=== PATIENT | male | born 1960 | race Caucasian/White ===

== ENCOUNTER 2017-04-17 12:33 | Inpatient (IN) | payer BC, OTHER ==
[~2017-04-17] VITALS: Ht 182.9 cm; Wt 68.0 kg
[2017-04-17 14:00] VITALS: BP 122/77
--- NOTE | 2017-04-17 14:00 | NUR ---
INTAKE ASSESSMENT Received patient in intake. He is AOX4, stable, and ambulatory. Vital signs WNL. Patient reports NKA. Patient has seizure history last seizure 2 days ago. Patient brought home medications with him. Explained unit protocols and patient verbalized understanding. Will admit patient upon admission to third floor.
--- NOTE | 2017-04-17 14:10 | NUR ---
ADMISSION NOTE Allergy- NKA/NKFA Status-Full code Height -6'0 Weight-150 lb PCP-ALEJO HERNANDEZ Vital Signs- B/P-122/77,HR-118, R-18, TEMP-98.9, SPO2-97%, Pain 0/10 CIWA-3 Patient is a 56 year old male admitted to [facility] to detox center for ETOH dependence under the care of Dr. Mendoza. Patient unable to provide Urine at this time, thorough body and belonging check done by CREDIT CONTROLLER. Patient appears anxious and agitated. Patient is cooperative during nursing assessment. Upon admission Patient is noted to be flat, intoxicated, but cooperative with admission. Patient denies chest pain or SOB. Lung sounds clear with no cough noted. Bowel sounds present in all 4 quadrants. BUE and BLE noted WNL with no edema present. Skin check done with no significant findings. Pt reported PMH of Anxiety, Insomnia, history of seizure 2 days ago, Bipolar, GERD, HTN, Fracture Rib 1 week ago. Pt refused PNA vaccine. Patient brought in home medications. Patient denies SI/HI ideations. Pt AOx4. Patient reported third time in treatment. Patient reports of 5 years of sobriety from 2000 to 2005. Pt reported s/s of withdrawal as anxiety, agitation, Sweats, seizure. Pt reported Substance abuse history as: ETOH(VODKA)- Patient reported first drinking at the age of 10 and has been drinking on and off. for the past 6 months pt reported drinking 750ml Po daily, pt last drank on 04/17/17 at 0900 750ml Po. Educated patient regarding unit policies and protocols, patient verbalized understanding. Patient oriented to unit by CREDIT CONTROLLER. Fall and seizure precautions in place. Safety measures in place, Call light within reach. Will cont to monitor.
[2017-04-17] MEDS ORDERED: PHEN32.43 PO (14:19)
[2017-04-17] MEDS ORDERED: AMIT100T2 PO (14:19)
[2017-04-17] MEDS ORDERED: ONDA4TAB5 PO (14:19)
[2017-04-17] MEDS ORDERED: QUET300T19 PO (14:19)
[2017-04-17] MEDS ORDERED: LORA2TAB95 PO (14:19)
[2017-04-17] MEDS ORDERED: CLON0.1T PO (14:19)
[2017-04-17] MEDS ORDERED: TRAZ300T2 PO (14:19)
[2017-04-17] MEDS ORDERED: CHLO25TA2 PO (14:19)
[2017-04-17] MEDS ORDERED: PANT40TA4 PO (14:19)
[2017-04-17] MEDS ORDERED: BUSP15TA3 PO (14:19)
[2017-04-17] MEDS ORDERED: LEVE500T9 PO (14:19)
[2017-04-17] MEDS ORDERED: LEVETIRACETAM 500 MG TABLET PO SCH (15:15)
[2017-04-17] MEDS ORDERED: LORAZEPAM 2 MG/1 ML VIAL IM PRN (15:30)
[2017-04-17] MEDS ORDERED: ONDANSETRON 4 MG/2 ML VIAL IM PRN (15:30)
[2017-04-17] MEDS ORDERED: THIAMINE HCL 200 MG/2 ML VIAL IM ONE (15:30)
[2017-04-17] MEDS ORDERED: MAG HYDROX/AL HYDROX/SIMETH 30 ML LIQUID UDC PO PRN (15:30)
[2017-04-17] MEDS ORDERED: LOPERAMIDE HCL 2 MG CAPSULE PO PRN ×2 (15:30)
[2017-04-17] MEDS ORDERED: MIRALAX 17 GM POWD.PACK PO PRN (15:30)
[2017-04-17] MEDS ORDERED: DIAZEPAM 5 MG TABLET PO PRN (15:30)
[2017-04-17] MEDS ORDERED: ONDANSETRON ODT 4 MG TAB.RAPDIS SL PRN (15:30)
[2017-04-17] MEDS ORDERED: ACETAMINOPHEN 325 MG TABLET PO PRN (15:30)
[2017-04-17] MEDS ORDERED: DICYCLOMINE HCL 20 MG TABLET PO PRN (15:30)
[2017-04-17] MEDS ORDERED: IBUPROFEN 400 MG TABLET PO PRN (15:30)
[2017-04-17] MEDS ORDERED: CLONIDINE HCL 0.1 MG TABLET PO PRN (15:30)
[2017-04-17] MEDS ORDERED: HYDROXYZINE PAMOATE 25 MG CAPSULE PO PRN (15:30)
[2017-04-17] MEDS ORDERED: MAGNESIUM HYDROXIDE 30 ML LIQUID UDC PO PRN (15:30)
[2017-04-17] MEDS ORDERED: DIAZEPAM 10 MG TABLET PO PRN ×2 (15:30)
[2017-04-17 16:00] VITALS: BP 117/72
[2017-04-17 16:09] LABS: ALANINE AMINOTRANSFERASE 23 U/L (16-63); ALKALINE PHOSPHATASE 73 U/L (50-136); AMYLASE 39 U/L (25-115); ASPARTATE AMINOTRANSFERASE 26 U/L (15-37); BASOPHILS % (AUTO) 0.3 % (0.0-2.0); BILIRUBIN,TOTAL 0.6 mg/dL (0.2-1.0); CARBON DIOXIDE 27 mmol/L (21-32); CHLORIDE 102 mmol/L (98-107); CREATININE 1.1 mg/dL (0.6-1.3); EOSINOPHILS % (AUTO) 0.2 % (0.0-7.0); GLUCOSE 103 mg/dL (74-106); HEMATOCRIT 40.7 % (40-50); HEMOGLOBIN 13.8 G/DL (14.0-18.0); LIPASE 89 U/L (73-393); MAGNESIUM 1.5 mg/dL (1.8-2.4); MEAN CORPUSCULAR HEMOGLOBIN 30.6 UUG (27.0-31.0); MEAN CORPUSCULAR HGB CONC 34 g/dL (32.0-37.0); MEAN CORPUSCULAR VOLUME 90.2 FL (82.0-92.0); MONOCYTES # (AUTO) 0.5 K/UL (0.1-1.30); MONOCYTES % (AUTO) 4.6 % (0.0-11.0); NEUTROPHILS # (AUTO) 8.3 K/UL (1.8-8.9); NEUTROPHILS % (AUTO) 84.9 % (38.5-71.5); PLATELET COUNT (AUTO) 384 K/UL (150-450); POTASSIUM 4.6 mmol/L (3.5-5.1); RED BLOOD CELL COUNT(AUTO) 4.51 MIL/UL (4.7-6.1); TOTAL PROTEIN, SERUM 7.4 g/dL (6.4-8.2); UREA NITROGEN, BLOOD 28 mg/dL (7-18); WHITE BLOOD COUNT (AUTO) 9.8 K/UL (4.0-11.2)
[2017-04-17 16:26] LABS: ETHANOL < 3 MG/DL (0-0)
[2017-04-17] MEDS: busPIRone 10 MG TABLET PO SCH (16:56)
[2017-04-17] MEDS ORDERED: PANTOPRAZOLE SODIUM 40 MG TABLET.DR PO SCH (17:00)
--- NOTE | 2017-04-17 17:41 | NUR ---
PRN VALIUM/ZOFRAN Patient reported emesis x2/anxiety,agitation, nausea, sweats, CIWA score noted 10. Patient medicated with PRN Valium 10mg Po and Zofran 4mg IM as ordered. Will cont to monitor and reassess.
[2017-04-17] MEDS ORDERED: MAGNESIUM SULFATE 2 GM in IV DEXTROSE 5% 100 ML IV ONE (18:00)
--- NOTE | 2017-04-17 18:14 | NUR ---
ZOFRAN REASSESSMENT Per patient Zofran was effective no nausea no emesis at this time.
[2017-04-17] MEDS ORDERED: DIAZEPAM 10 MG/2 ML DISP.SYRIN IV PRN ×3 (18:15)
--- NOTE | 2017-04-17 18:25 | NUR ---
EMESIS x1 MD notified and aware of patient throwing up coffee ground emesis X1 orders received to place pt on NPO labs Q6H and IV fluids all orders processed and carried out. Will cont to monitor patient is in stable condition.
--- NOTE | 2017-04-17 18:30 | NUR ---
IV INSERTION IV inserted to left hand, 22 gauge, procedure explained prior to insertion with good verbal understanding, procedure well tolerated. IV saline lock patent, flushed with 10 cc normal saline, no s/sx of infiltration. Will cont to monitor.
[2017-04-17] MEDS: MAGNESIUM SULFATE/D5W 100 ML IV SCH (18:34)
[2017-04-17] MEDS: POTASSIUM CHLORIDE 10 MEQ in IV D5 1/2 NS 1000 ML 1,000 ML IV SCH (18:34)
--- NOTE | 2017-04-17 18:41 | NUR ---
VALIUM REASSESSMENT Per patient PRN Valium was effective in reducing patient's withdrawal symptoms CIWA score noted 5.
[2017-04-17] MEDS ORDERED: LORAZEPAM 2 MG/1 ML VIAL IV PRN (18:45)
[2017-04-17] MEDS ORDERED: LORAZEPAM 1 MG TABLET PO PRN ×2 (18:45)
--- NOTE | 2017-04-17 18:52 | NUR ---
IV D51/2NS w/10meq KCL @ 125cc/hr started via pump. Also Magnesium IVPB started @ 100cc/hr.
[2017-04-17 19:01] LABS: *AMPHETAMINE, URINE NEGATIVE (NEGATIVE); *BARBITURATE, URINE POSITIVE (NEGATIVE); *CANNABINOID, URINE POSITIVE (NEGATIVE); *COCCAINE, URINE NEGATIVE (NEGATIVE); *OPIATE, URINE POSITIVE (NEGATIVE); *PHENCYCLIDINE SCREEN,URINE NEGATIVE (NEGATIVE)
--- NOTE | 2017-04-17 19:30 | NUR ---
Start of Shift Notes 56 year old male admitted on 04/17/2017 for ETOH dependence. Patient placed on 5 days Ativan taper starting tomorrow 04/18/2017. Px has NKA, on regular diet, and on Full Code. Px has hx of seizure in which the last was 04/15/2017. During the rounds at 1930, px was sleeping. Px has an IVF of KCL 10 Meqs in D5 half saline 1L IV fluids with piggy back Magnesium Sulfate 1G in D5W 100 ml, 100 ml/hr running well on left hand 22G. VS: BP= 120/72, VT= 111, RR= 18, O2sat= 97%, T= 98.8. Patient urine results came positive for barbiturates, cannabinoids, Benzodiazepines. Patient reported taking Phenobarbital since september 2016, and Ativan for 20 years on and off, notified. Safety measures in place, Bed locked on lowest position, side rails up 2x and call light within reach. We'll continue to monitor.
[2017-04-17 19:32] LABS: BASOPHILS # (AUTO) 0.1 K/uL (0.0-8.0); BASOPHILS % (AUTO) 1.9 % (0.0-2.0); EOSINOPHILS % (AUTO) 0.2 % (0.0-7.0); HEMATOCRIT 35.3 % (40-50); LYMPHOCYTES # (AUTO) 1.3 K/UL (0.8-4.8); LYMPHOCYTES % (AUTO) 16.8 % (20.5-51.5); MEAN CORPUSCULAR HEMOGLOBIN 30.6 UUG (27.0-31.0); MEAN CORPUSCULAR HGB CONC 34 g/dL (32.0-37.0); MEAN CORPUSCULAR VOLUME 90.2 FL (82.0-92.0); MONOCYTES # (AUTO) 0.7 K/UL (0.1-1.30); MONOCYTES % (AUTO) 9.5 % (0.0-11.0); NEUTROPHILS # (AUTO) 5.4 K/UL (1.8-8.9); NEUTROPHILS % (AUTO) 71.6 % (38.5-71.5); PLATELET COUNT (AUTO) 301 K/UL (150-450); RED BLOOD CELL COUNT(AUTO) 3.92 MIL/UL (4.7-6.1); WHITE BLOOD COUNT (AUTO) 7.5 K/UL (4.0-11.2)
--- NOTE | 2017-04-17 19:33 | NUR ---
END OF SHIFT NOTE 56 year old male admitted for ETOH dependence. Patient placed on 5 days Ativan taper starting tomorrow. Patient presented with anxiety agitation, sweats, nausea, Patient was given PRN Valium/Zofran noted to be effective. IV fluids running well on left hand 22G. Patient urine results came positive for barbiturates, cannabinoids, Benzodiazepines. patient reported taking Phenobarbital since september 2016, and Ativan for 20 years on and off, MD notified. Safety measures in place, call light within reach. Pt endorsed to night nurse in stable condition.
--- NOTE | 2017-04-17 19:40 | NUR ---
MD Communication: Relayed to MD change in Hgb. Hgb went down from 13.8 at 1538 to 12.0 at 1920. MD ordered for transfer to ER for possible GI Bleed. Will transfer to ER.
[2017-04-17 20:00] VITALS: BP 120/72
[2017-04-17] MEDS ORDERED: IV NORMAL SALINE 500 ML IV ONE (20:00)
--- NOTE | 2017-04-17 20:10 | NUR ---
Manager Fire, ER, and MD Communication: ER called and stated no beds available for now. Manager Fire to call unit when ready to transfer. MD made aware with new order to give 500ml NS bolus one time now.
--- NOTE | 2017-04-17 20:13 | NUR ---
IVF NS 500 ml bolus IVF NS 500 ml given bolus running well through peripheral IV access on left hand. We'll continue to monitor.
--- NOTE | 2017-04-17 20:30 | NUR ---
Peripheral IV access Started an IV access on right forearm 18 G aseptic technique, with good blood return, flushed with 10 cc NS. Px tolerated well.
[2017-04-17] MEDS: PANTOPRAZOLE SODIUM IV 80 MG in IV DEXTROSE 5% 500 ML IV SCH (20:45)
[2017-04-17] MEDS: AMITRIPTYLINE HCL 50 MG TABLET PO SCH (21:00)
[2017-04-17] MEDS: QUETIAPINE FUMARATE 200 MG TABLET PO SCH (21:00)
[2017-04-17] MEDS: TRAZODONE 100 MG TABLET PO SCH (21:00)
--- NOTE | 2017-04-17 21:00 | NUR ---
PO medicines held Px is on NPO. Dr. Mendoza held all PO medicines.
--- NOTE | 2017-04-17 23:00 | NUR ---
Transfer to ER Px transferred to ER bed to bed per doctors order. Hemoglobin 12.0 at 1920H. VS as follows BP= 117/79, CO= 110, RR= 17, T= 98.6, O2sat= 94%. Endorsed to ER staff Armando.
--- NOTE | 2017-04-18 02:00 | NUR ---
Return to Unit Px returned to unit to his room via wheelchair. Endorsement and papers- Lab results done at 2350, ECG report, chest and left ribs X-ray report done at 2333, and Protonix Rx received from ER staff nurse Armando gutierrez to px's chart. We'll continue to monitor.
[2017-04-18] MEDS: LEVETIRACETAM IV 500 MG in IV DEXTROSE 5% 100 ML IV SCH ×3 (02:35→21:49)
--- NOTE | 2017-04-18 02:35 | NUR ---
IV Keppra Keppra 500 mg in D5 100 ml hooked as IVPB running at 400 ml/ hr IV peripheral access on left hand.
[2017-04-18] MEDS: POTASSIUM CHLORIDE 10 MEQ in IV D5 1/2 NS 1000 ML 1,000 ML IV SCH (03:00)
--- NOTE | 2017-04-18 03:00 | NUR ---
IV KCL IV Kcl 10 Meqs on D5 half saline 1 L hooked as a primary bag IVF running at 125 ml/hour.
[2017-04-18] MEDS: LORAZEPAM 2 MG/1 ML VIAL IV PRN ×4 (03:05→16:59)
--- NOTE | 2017-04-18 03:05 | NUR ---
PRN IV Ativan Px verbalized his heightened anxiety and left lower chest pain. CIWA 9. Ativan 2 mg/ml, 0.5 ml given slow IV then flushed with 10 ml NS. We'll continue to monitor.
[2017-04-18] MEDS: MAGNESIUM SULFATE/D5W 100 ML IV SCH (03:14)
--- NOTE | 2017-04-18 03:14 | NUR ---
IV Magnesium Sulfate IV Mag sulfate 1 G in D5W 100 ml hooked as IVPB running at 100 ml/hr.
[2017-04-18 04:00] VITALS: BP 132/77
[2017-04-18] MEDS: PANTOPRAZOLE SODIUM IV 80 MG in IV DEXTROSE 5% 500 ML IV SCH (04:55)
--- NOTE | 2017-04-18 04:55 | NUR ---
IV Protonix IV Pantoprazole 80 mg in D5 500 ml hooked as IVPB running at 50 ml/hr.
--- NOTE | 2017-04-18 07:10 | NUR ---
Start of Shift Endorsement received from nightshift nurse. Pt is a 56 y/o male admitted for alcohol dependence. PT has been placed on a 5 day Ativan taper. Pt is moderately withdrawing AEB CIWA 9 at 0300. Pt has a 22g saline lock in left hand and a 18g saline lock in his right forearm. Pt is receiving Protonix 50ml/s continuously and Keppra Q12H at 400ml/s. Pt is on NPO at this time due to suspected internal bleeding. Pt was transferred to ER between 12am to 2am. PT received PRN Ativan. VS WNL. Full Code. PT is alert and oriented x4. Pt is in STABLE condition at this time. Remains compliant with medication and diet regimen. All needs have been met, All safety measures in place per hospital policy. Bed in lowest position, side rails up x2, call-light within reach. Will continue to monitor
--- NOTE | 2017-04-18 07:11 | NUR ---
End of Shift Notes 56 year old male admitted on 04/17/2017 for ETOH dependence. Patient placed on 5 days Ativan taper starting tomorrow 04/18/2017. Px has NKA, on regular diet, and on Full Code. Px has hx of seizure in which the last was 04/15/2017. Px has an IVF of KCL 10 Meqs in D5 half saline 1L IV fluids with piggy back Magnesium Sulfate 1G in D5W 100 ml, 100 ml/hr running well on left hand 22G. Patient urine results came positive for barbiturates, cannabinoids, Benzodiazepines. patient reported taking Phenobarbital since september 2016, and Ativan for 20 years on and off, MD notified. During the shift, IVF NS 500 ml given bolus running well through peripheral IV access on left hand. Started an IV access on right forearm 18 G aseptic technique, with good blood return, flushed with 10 cc NS. Px tolerated well. Px is on NPO. Dr. Mendoza held all PO medicines. At 2300, Px transferred to ER bed to bed per doctors order. Hemoglobin 12.0 at 1920H. VS as follows BP= 117/79, AR= 110, RR= 17, T= 98.6, O2sat= 94%. Endorsed to ER staff Armando. At 0200, Px returned to unit to his room via wheelchair. Endorsement and papers- Lab results done at 2350, ECG report, chest and left ribs X-ray report done at 2333, and Protonix Rx received from ER staff nurse Armando put to px's chart. At 0235, Keppra 500 mg in D5 100 ml hooked as IVPB running at 400 ml/ hr. At 0300, IV Kcl 10 Meqs on D5 half saline 1 L hooked as a primary bag IVF running at 125 ml/hour. At 0305, Px verbalized his heightened anxiety and left lower chest pain. CIWA 9. Ativan 2 mg/ml, 0.5 ml given slow IV then flushed with 10 ml NS. At 0314, IV Mag sulfate 1 G in D5W 100 ml hooked as IVPB running at 100 ml/hr. At 0455, IV Pantoprazole 80 mg in D5 500 ml hooked as IVPB running at 50 ml/hr. Oral intake none, voided 2x, No BM. Slept for 6 hours. Safety measures in place, Bed on lowest position, side rails up padded 2x, call light within reach. We'll continue to monitor.
[2017-04-18 07:18] LABS: BASOPHILS % (AUTO) 0.5 % (0.0-2.0); EOSINOPHILS # (AUTO) 0.3 K/uL (0.0-0.7); EOSINOPHILS % (AUTO) 3.3 % (0.0-7.0); HEMATOCRIT 31.7 % (36.7-47.1); LYMPHOCYTES # (AUTO) 1.8 K/uL (20.0-40.0); LYMPHOCYTES % (AUTO) 23.5 % (20.5-51.5); MEAN CORPUSCULAR HEMOGLOBIN 31.6 uug (23.8-33.4); MEAN CORPUSCULAR HGB CONC 35 g/dL (32.5-36.3); MONOCYTES # (AUTO) 0.9 K/uL (2.0-10.0); MONOCYTES % (AUTO) 12.3 % (0.0-11.0); NEUTROPHILS # (AUTO) 4.6 K/uL (1.8-8.9); NEUTROPHILS % (AUTO) 60.4 % (38.5-71.5); PLATELET COUNT (AUTO) 232 K/uL (152-348); RED BLOOD CELL COUNT(AUTO) 3.48 MIL/uL (4.06-5.63); WHITE BLOOD COUNT (AUTO) 7.6 K/uL (3.6-10.2)
[2017-04-18 08:00] VITALS: BP 125/86
[2017-04-18] MEDS ORDERED: TUBERCULIN,PURIF.PROT.DERIV. 5 TU/0.1 ML TEST ID ONE (09:00)
[2017-04-18] MEDS ORDERED: DOCUSATE SODIUM 250 MG CAPSULE PO SCH (09:00)
[2017-04-18] MEDS ORDERED: LORAZEPAM 1 MG TABLET PO SCH (09:00)
[2017-04-18] MEDS ORDERED: FOLIC ACID 1 MG TABLET PO SCH (09:00)
[2017-04-18] MEDS: busPIRone 10 MG TABLET PO SCH ×3 (09:00→17:00)
[2017-04-18] MEDS ORDERED: MULTIVITAMINS,THERAPEUTIC TABLET PO SCH (09:00)
[2017-04-18] MEDS ORDERED: 5 DAY TAPER OF LORAZEPAM -SERENITY PROTOCOL PO PRN (09:00)
[2017-04-18] MEDS ORDERED: THIAMINE HCL 100 MG TABLET PO SCH (09:00)
[2017-04-18 12:00] VITALS: BP 117/72
[2017-04-18] MEDS ORDERED: LORAZEPAM 2 MG/1 ML VIAL IV PRN (12:45)
[2017-04-18] MEDS ORDERED: MVI ADULT 10 ML VIAL=1 AMP 10 ML, FOLIC ACID 1 MG, THIAMINE HCL INJ 100 MG, MAGNESIUM S... IV SCH ×5 (12:45)
[2017-04-18] MEDS ORDERED: PHARMACY TO ADD 1 AMP OF MVI DAILY TO IVF ONE BAG XX PRN (12:45)
[2017-04-18] MEDS ORDERED: NICOTINE POLACRILEX 4 MG GUM-PK OF TEN BC PRN (12:45)
[2017-04-18] MEDS ORDERED: DEXTROSE 5% IV SCH (13:15)
[2017-04-18] MEDS ORDERED: MVI ADULT 10 ML VIAL=1 AMP 10 ML in IV D5/ 0.9% NACL 1,000 ML IV PRN (13:15)
[2017-04-18] MEDS ORDERED: FOLIC ACID IV SCH (13:15)
[2017-04-18] MEDS ORDERED: MAGNESIUM SULFATE 1 GM in IV DEXTROSE 5% 100 ML IV SCH (13:15)
[2017-04-18] MEDS ORDERED: THIAMINE HCL INJ 100 MG in IV DEXTROSE 5% 100 ML IV SCH (13:30)
[2017-04-18] MEDS ORDERED: IV D5/ 0.9% NACL 1,000 ML IV PRN (13:30)
[2017-04-18] MEDS: NICOTINE 14 MG/24HR PATCH TD SCH (13:49)
--- NOTE | 2017-04-18 15:35 | NUR ---
IV Removed Removed 18g IV from pt's R Forearm due to infiltration. Hot pack was applied.
--- NOTE | 2017-04-18 15:38 | NUR ---
IV Access Started 18g saline lock on pt's left forearm. IV is patent, no sign of infiltration. Return blood flow was noted.
[2017-04-18 16:00] VITALS: BP 127/88
[2017-04-18 16:01] LABS: BASOPHILS % (AUTO) 0.5 % (0.0-2.0); EOSINOPHILS # (AUTO) 0.3 K/uL (0.0-0.7); EOSINOPHILS % (AUTO) 4.9 % (0.0-7.0); HEMOGLOBIN 10.7 G/DL (14.0-18.0); LYMPHOCYTES # (AUTO) 1.5 K/UL (0.8-4.8); MEAN CORPUSCULAR HEMOGLOBIN 30.5 UUG (27.0-31.0); MEAN CORPUSCULAR HGB CONC 34 g/dL (32.0-37.0); MEAN CORPUSCULAR VOLUME 90.9 FL (82.0-92.0); MONOCYTES # (AUTO) 0.6 K/UL (0.1-1.30); MONOCYTES % (AUTO) 8.9 % (0.0-11.0); NEUTROPHILS # (AUTO) 3.8 K/UL (1.8-8.9); NEUTROPHILS % (AUTO) 60.7 % (38.5-71.5); PLATELET COUNT (AUTO) 287 K/UL (150-450); RED BLOOD CELL COUNT(AUTO) 3.52 MIL/UL (4.7-6.1); WHITE BLOOD COUNT (AUTO) 6.2 K/UL (4.0-11.2)
--- NOTE | 2017-04-18 16:06 | NUR ---
Therapist prompted client to attend group today. Client agreed to attend.
--- NOTE | 2017-04-18 16:59 | NUR ---
PRN Ativan Administered PRN Ativan 1mg for CIWA of 10. Will re-assess.
--- NOTE | 2017-04-18 17:20 | NUR ---
PRN Re-assessment Pt presents with CIWA score of 6. Medication was effective.
--- NOTE | 2017-04-18 19:08 | NUR ---
End of Shift Endorsement given to nightshift nurse. Pt is a 56 y/o male admitted for alcohol dependence. PT has been placed on a 5 day Ativan taper. Pt is moderately withdrawing AEB CIWA 10 at 1600. Pt has a 22g saline lock in left hand and a 18g saline lock in his left forearm. Pt is receiving Protonix 50ml/s continuously and Keppra Q12H at 400ml/s. Pt continues to be NPO due to possible internal bleeding. 18g saline lock was discontinued from right forearm due to infiltration. Applied hot pack to help relieve the infiltration. Educated pt on Medication S/E and Disease process for esophageal varices. PT received PRN Ativan IV x3 per MD guidelines. PT was evaluated by GI doctor for endoscopy on 04/19/17 in the morning. Type and Screen performed on the pt, Red band has been placed on the pt's right wrist. VS WNL. Full Code. PT is alert and oriented x4. Pt is in STABLE condition at this time. Remains compliant with medication and diet regimen. All needs have been met, All safety measures in place per hospital policy. Bed in lowest position, side rails up x2, call-light within reach. Will continue to monitor
--- NOTE | 2017-04-18 19:30 | NUR ---
Start of Shift Notes Received 56 year old male admitted on 04/17/2017 for ETOH dependence. Patient placed on 5 days. Px has NKA, on regular diet, and on Full Code. Px has hx of seizure in which the last was 04/15/2017. During the rounds at 1930, px was sleeping. Px has an IVF of KCL 10 Meqs in D5 half saline 1L IV fluids and and Multivitamin in D5 NS 1L runing well. Safety measures in place, Bed locked on lowest position, side rails up 2x and call light within reach. We'll continue to monitor.
[2017-04-18 20:00] VITALS: BP 97/70
[2017-04-18] MEDS: QUETIAPINE FUMARATE 200 MG TABLET PO SCH (21:00)
[2017-04-18] MEDS: TRAZODONE 100 MG TABLET PO SCH (21:00)
[2017-04-18] MEDS: AMITRIPTYLINE HCL 50 MG TABLET PO SCH (21:00)
--- NOTE | 2017-04-18 21:01 | NUR ---
PRN IV Ativan Px woke up and verbalized very high anxiety, body pains at 8/10 and agitation noted. CIWA 16. Ativan 2 mg/ml, 1 ml given slow IV push. We'll continue to monitor.
[2017-04-18] MEDS: PANTOPRAZOLE SODIUM 40 MG VIAL IV SCH (21:48)
[2017-04-19] VITALS: BP 108/70
[2017-04-19 00:49] LABS: BASOPHILS % (AUTO) 0.8 % (0.0-2.0); EOSINOPHILS % (AUTO) 8.1 % (0.0-7.0); HEMOGLOBIN 10.8 G/DL (14.0-18.0); LYMPHOCYTES % (AUTO) 28.3 % (20.5-51.5); MEAN CORPUSCULAR HEMOGLOBIN 30.5 UUG (27.0-31.0); MEAN CORPUSCULAR HGB CONC 34 g/dL (32.0-37.0); MEAN CORPUSCULAR VOLUME 90.4 FL (82.0-92.0); MONOCYTES % (AUTO) 10.2 % (0.0-11.0); NEUTROPHILS % (AUTO) 52.6 % (38.5-71.5); PLATELET COUNT (AUTO) 289 K/UL (150-450); RED BLOOD CELL COUNT(AUTO) 3.54 MIL/UL (4.7-6.1)
[2017-04-19 00:50] LABS: EOSINOPHILS # (AUTO) 0.5 K/uL (0.0-0.7); LYMPHOCYTES # (AUTO) 1.7 K/UL (0.8-4.8); MONOCYTES # (AUTO) 0.6 K/UL (0.1-1.30); NEUTROPHILS # (AUTO) 3.2 K/UL (1.8-8.9)
--- NOTE | 2017-04-19 02:40 | NUR ---
IV access Peripheral IV access on left hand dislodged while px was sleeping. Peripheral IV access started on right dorsal hand 22 G aseptically, with good blood return, flushed with 10 cc NS. Px tolerated well. We'll continue to monitor.
[2017-04-19 04:00] VITALS: BP 108/74
--- NOTE | 2017-04-19 04:00 | NUR ---
CIWA deferred CIWA deferred due px is asleep. To assess if the px is awake per doctor's order. We'll continue to monitor.
--- NOTE | 2017-04-19 04:35 | NUR ---
IVF D5 NS IVF D5 NS 1 L hooked as a follow up running at 150 ml/hr through a peripheral IV access on right dorsal hand. We'll continue to monitor.
[2017-04-19 07:01] LABS: BASOPHILS % (AUTO) 0.5 % (0.0-2.0); EOSINOPHILS # (AUTO) 0.4 K/uL (0.0-0.7); EOSINOPHILS % (AUTO) 8.1 % (0.0-7.0); HEMATOCRIT 32.1 % (36.7-47.1); LYMPHOCYTES # (AUTO) 1.3 K/uL (20.0-40.0); LYMPHOCYTES % (AUTO) 25.4 % (20.5-51.5); MEAN CORPUSCULAR HEMOGLOBIN 31.3 uug (23.8-33.4); MEAN CORPUSCULAR HGB CONC 34 g/dL (32.5-36.3); MEAN CORPUSCULAR VOLUME 91.2 fL (73.0-96.2); MONOCYTES # (AUTO) 0.5 K/uL (2.0-10.0); MONOCYTES % (AUTO) 10.7 % (0.0-11.0); NEUTROPHILS # (AUTO) 2.7 K/uL (1.8-8.9); NEUTROPHILS % (AUTO) 55.3 % (38.5-71.5); PLATELET COUNT (AUTO) 248 K/uL (152-348); RED BLOOD CELL COUNT(AUTO) 3.52 MIL/uL (4.06-5.63)
--- NOTE | 2017-04-19 07:01 | NUR ---
Start of Shift Endorsement received from nightshift nurse. Pt is a 56 y/o male admitted for alcohol dependence. PT has been placed on a 5 day Ativan taper. Pt is moderately withdrawing AEB CIWA 10 at midnight. Pt has a 22g saline lock in right hand and a 18g saline lock in his left forearm. Pt reports sleeping 10 hours. Pt is on NPO at this time due to suspected internal bleeding.Pt is expected to go for an endoscopy at 0730. All documentation has been completed and signed. All consents have been signed. PT received PRN Ativan. VS WNL. Full Code. PT is alert and oriented x4. Pt is in STABLE condition at this time. Remains compliant with medication and diet regimen. All needs have been met, All safety measures in place per hospital policy. Bed in lowest position, side rails up x2, call-light within reach. Will continue to monitor
--- NOTE | 2017-04-19 07:30 | NUR ---
At 0730 pt taken down to OR to have procedure (EGD), pt is in stable condition at this time. Assigned nurse to follow up.
--- NOTE | 2017-04-19 07:39 | NUR ---
End of Shift Notes 56 year old male admitted on 04/17/2017 for ETOH dependence. Patient placed on 5 days. Px has NKA, on regular diet, and on Full Code. Px has hx of seizure in which the last was 04/15/2017. Px has an IVF of KCL 10 Meqs in D5 half saline 1L IV fluids and and Multivitamin in D5 NS 1L runing well. During the shift at 2101, Px woke up and verbalized very high anxiety, body pains at 8/10 and agitation noted. CIWA 16. Ativan 2 mg/ml, 1 ml given slow IV push.At 0240, Peripheral IV access on left hand dislodged while px was sleeping. Peripheral IV access started on right dorsal hand 22 G aseptically, with good blood return, flushed with 10 cc NS. Px tolerated well. At 0435, IVF D5 NS 1 L hooked as a follow up running at 150 ml/hr through a peripheral IV access on right dorsal hand. Safety measures in place, Bed locked on lowest position, side rails up 2x and call light within reach. We'll continue to monitor.
[2017-04-19 07:40] LABS: BILIRUBIN,DIRECT 0.1 mg/dL (0.0-0.2); BILIRUBIN,TOTAL 0.3 mg/dL (0.2-1.0); CREATININE 0.8 mg/dL (0.6-1.3); MAGNESIUM 1.7 mg/dL (1.8-2.4); PHOSPHOROUS 2.8 mg/dL (2.5-4.9); POTASSIUM 3.3 mmol/L (3.5-5.1); TOTAL PROTEIN, SERUM 5.5 g/dL (6.4-8.2)
[2017-04-19 08:20] LABS: HEPATITIS B SURFACE AG Negative (Negative)
[2017-04-19] MEDS ORDERED: LORAZEPAM 1 MG TABLET PO SCH (09:00)
--- NOTE | 2017-04-19 09:05 | NUR ---
Pt brought back up onto unit by OR staff. Pt is in stable condition, per surgeon to resume regular diet as tolerated. Assigned nurse to continue monitoring.
[2017-04-19] MEDS: NICOTINE 14 MG/24HR PATCH TD SCH (10:08)
[2017-04-19] MEDS: PANTOPRAZOLE SODIUM 40 MG VIAL IV SCH (10:08)
--- NOTE | 2017-04-19 11:43 | NUR ---
AMA Note Pt left AMA, Pt refused to comply with treatment plan. Pt educated about the risks and consequences of leaving AMA, pt verbalized understanding but was adamant about leaving. Multiple staff members including the doctor, patient advocates and nurses attempted to reason with the pt without any success. VS WNL. Skin intact, pt denies any suicidal or homicidal ideations. Pt psychiatrist and MD were notified and aware. PT was given a list of community resources, AMA forms explained and signed. All belongings returned to PT. Removed Both IV access from Right hand and Left forearm. PT left facility AMA on 04/19/17 at 1143.
[2017-04-20] MEDS ORDERED: LORAZEPAM 1 MG TABLET PO SCH (09:00)
[2017-04-21] MEDS ORDERED: LORAZEPAM 1 MG TABLET PO SCH (09:00)
[2017-04-22] MEDS ORDERED: LORAZEPAM 1 MG TABLET PO SCH (09:00)
== END 2017-04-19 11:43 | disposition left against medical advice (07) | DRG 894 ==
LOC: SRC 13:25
PROVIDERS: ADMIT Internal Medicine; ATTEND Internal Medicine
PROC: HZ2ZZZZ Detoxification Services for Substance Abuse Treatment (ICD-10-PCS; principal; 2017-04-17)
DX: F10.230 Alcohol dependence with withdrawal, uncomplicated (principal); K22.6 Gastro-esophageal laceration-hemorrhage syndrome; D62 Acute posthemorrhagic anemia; Y90.9 Presence of alcohol in blood, level not specified; K44.9 Diaphragmatic hernia without obstruction or gangrene; F41.9 Anxiety disorder, unspecified; F17.210 Nicotine dependence, cigarettes, uncomplicated; K21.0 Gastro-esophageal reflux disease with esophagitis; K29.80 Duodenitis without bleeding; G40.909 Epilepsy, unspecified, not intractable, without status epilepticus; F39 Unspecified mood [affective] disorder; F12.90 Cannabis use, unspecified, uncomplicated
CPT/HCPCS: 36415; 80307; 80345; 80346; 80349; 80361; 83690; 83735; 84100; 85025; 85610; 86592; 86705; 86803; 86850; 86900; 86901; 87340; 87806; 93005; A4663; C9113; G0480; J1953; J2060; J2405; J3411; J3475; J3480; J3490; J7040; J7042; J7060

== ENCOUNTER 2017-04-17 23:08 | Day surgery (SDC) | payer BC, OTHER ==
[~2017-04-17] VITALS: Ht 182.9 cm; Wt 73.5 kg
[~2017-04-17 23:08] MED LIST: AMIT100T2 PO; BUSP15TA3 PO; CHLO25TA2 PO; CLON0.1T PO; LEVE500T9 PO; LORA2TAB95 PO; ONDA4TAB5 PO; PANT40TA4 PO; PHEN32.43 PO; QUET300T19 PO; TRAZ300T2 PO
[2017-04-17] MEDS ORDERED: IV NORMAL SALINE 1000 ML BAG IV ONE (23:30)
[2017-04-17] MEDS ORDERED: OCTREOTIDE ACETATE 50 MCG/1 ML ML IV ONE (23:30)
[2017-04-17] MEDS ORDERED: OCTREOTIDE ACETATE 50 MCG/1 ML ML ONE (23:54)
[2017-04-18 00:07] LABS: BASOPHILS # (AUTO) 0.2 K/uL (0.0-8.0); BASOPHILS % (AUTO) 2.2 % (0.0-2.0); EOSINOPHILS # (AUTO) 0.1 K/uL (0.0-0.7); EOSINOPHILS % (AUTO) 0.9 % (0.0-7.0); HEMATOCRIT 35.1 % (40-50); LYMPHOCYTES # (AUTO) 2.2 K/UL (0.8-4.8); LYMPHOCYTES % (AUTO) 28.3 % (20.5-51.5); MEAN CORPUSCULAR HEMOGLOBIN 30.7 UUG (27.0-31.0); MEAN CORPUSCULAR HGB CONC 34 g/dL (32.0-37.0); MONOCYTES # (AUTO) 0.8 K/UL (0.1-1.30); MONOCYTES % (AUTO) 9.7 % (0.0-11.0); NEUTROPHILS # (AUTO) 4.5 K/UL (1.8-8.9); NEUTROPHILS % (AUTO) 58.9 % (38.5-71.5); PLATELET COUNT (AUTO) 334 K/UL (150-450); WHITE BLOOD COUNT (AUTO) 7.8 K/UL (4.0-11.2)
[2017-04-18 00:41] LABS: BILIRUBIN,DIRECT 0.1 mg/dL (0.0-0.2); BILIRUBIN,TOTAL 0.4 mg/dL (0.2-1.0); CREATININE 0.9 mg/dL (0.6-1.3); POTASSIUM 3.5 mmol/L (3.5-5.1); TOTAL PROTEIN, SERUM 6.5 g/dL (6.4-8.2)
[2017-04-18 01:21] LABS: *OCCULT BLOOD STOOL NEGATIVE (NEGATIVE)
[2017-04-18 02:20] VITALS: BP 117/71
[2017-04-19] MEDS ORDERED: PROPOFOL 200 MG/20 ML BOTTLE IV ONE (06:36)
[2017-04-19] MEDS ORDERED: IV NORMAL SALINE 1000 ML BAG IV ONE (06:36)
[2017-04-19] MEDS ORDERED: SIMETHICONE 40 MG/0.6 ML 30 ML BOTTLE MC ONE (06:36)
[2017-04-19] MEDS ORDERED: LIDOCAINE HCL 2% 20 ML VIAL MC ONE (06:36)
== END 2017-04-19 09:15 | disposition still patient (30) ==
LOC: ER 23:12 → GILAB 04-19 06:35
PROVIDERS: ATTEND Internal Medicine Gastroenterology
DX: K20.9 Esophagitis, unspecified (principal); K29.80 Duodenitis without bleeding; K29.70 Gastritis, unspecified, without bleeding
CPT/HCPCS: 36415; 43239; 71101; 80048; 80076; 82270; 83690; 84484; 85025; 85730; 86850; 86900; 86901; 93005; 96360; 96374; 99285; A4217; A4663; J2354; J3490 ×2; J7030 ×2; 70030-TC

== ENCOUNTER 2017-04-26 18:28 | Inpatient (IN) | payer BC, OTHER ==
[~2017-04-26] VITALS: Ht 182.9 cm; Wt 66.2 kg
[2017-04-26] MEDS ORDERED: DICYCLOMINE HCL 20 MG TABLET PO PRN (20:15)
[2017-04-26] MEDS ORDERED: LOPERAMIDE HCL 2 MG CAPSULE PO PRN ×2 (20:15)
[2017-04-26] MEDS ORDERED: MAG HYDROX/AL HYDROX/SIMETH 30 ML LIQUID UDC PO PRN (20:15)
[2017-04-26] MEDS ORDERED: ONDANSETRON 4 MG/2 ML VIAL IM PRN (20:15)
[2017-04-26] MEDS ORDERED: LORAZEPAM 2 MG/1 ML VIAL IM PRN (20:15)
[2017-04-26] MEDS ORDERED: diphenhydrAMINE 50 MG CAPSULE PO PRN (20:15)
[2017-04-26] MEDS ORDERED: LORAZEPAM 1 MG TABLET PO PRN ×2 (20:15)
[2017-04-26] MEDS ORDERED: ACETAMINOPHEN 325 MG TABLET PO PRN (20:15)
[2017-04-26] MEDS ORDERED: THIAMINE HCL 200 MG/2 ML VIAL IM ONE (20:15)
[2017-04-26] MEDS ORDERED: MIRALAX 17 GM POWD.PACK PO PRN (20:15)
[2017-04-26] MEDS ORDERED: MAGNESIUM HYDROXIDE 30 ML LIQUID UDC PO PRN (20:15)
[2017-04-26] MEDS ORDERED: ONDANSETRON ODT 4 MG TAB.RAPDIS SL PRN (20:15)
--- NOTE | 2017-04-26 20:30 | NUR ---
PRE-ADMISSION NOTE Px is a 56 y/o male, seen at intake, A&Ox4, no SOB with mild anxiety noted at this time. Discussed with patient the admission policies of the unit. Patient is coherent and able to respond to questions appropriately. Px is ambulatory with steady gait. Vital signs taken and as follows: BP: 133/84, P: 98, R: 18, O2: 98%, T: 97.7, PA: 0. Px verbalized understanding of instructions and teachings regarding disposal of narcotic and other controlled home medications, unit protocols such as taking of vital signs Q4H and handling and disposal of contraband. We'll continue with admission upon pxs arrival on the unit.
--- NOTE | 2017-04-26 21:00 | NUR ---
308 ADMISSION NOTE Sunny is a 56 y/o male admitted on 04/26/17 for ETOH dependence, arrived on the unit at 2049. Px has NKA. Px has history of seizures in which the last 1 was 2 weeks ago. Px was able to provide UDS. Upon admission CIWA 9, BP: 135/81, P: 92, R: 18, O2: 97%, T: 97.9, PA: 0. Weight 146 lbs, height 6. Sunny has a PCP, Dr. Marjan Mckeon in [facility]. Px smokes .5 to 1 pack of cigarettes daily. Px was here in [facility] last 04/17/17 to 04/19/2017. Px is able to understand and respond to all questions pertaining to his hospitalization. Substance Abuse History is as follows: 1. Vodka, 750 ml daily for 3 months. Last intake was 04/26/2017, 300 ml. Sunny was drinking alcohol since he was 10 y/o. Sunny's longest sober period was 5 years from 2002 to 2007. Treatment history: Sunny reports approximately 10 treatment histories in which the last was here in [facility]. Sunny reports that his mother and brother were alcoholics. PMH: Anxiety, depression, bipolar, seizures, angina ( not presently), ulcer, hernia (repaired), fractures, surgeries on cervical area C4-C5 and right metatarsal. Px brought medicines to be reconciled. Upon assessment, px is A&Ox4, px is mildly intoxicated, presents with anxiety, and skin is flushed. Respirations even and unlabored. Denies SOB, chest pain, N/V/D. Bowel sounds active x 4, abdomen soft. PERRLA. Skin intact, no open wounds noted. Px denies SI/HI. Educational information provided and left at bedside. Px oriented to room and encouraged to notify staff with any concerns. Safety measures in place. Call light within reach, side rails up x 2, bed locked and in low position. We'll continue to monitor.
[2017-04-26] MEDS ORDERED: NICOTINE POLACRILEX 4 MG GUM-PK OF TEN BC PRN (21:15)
[2017-04-26] MEDS ORDERED: NICOTINE 14 MG/24HR PATCH TD PRN (21:15)
[2017-04-26 21:30] LABS: *AMPHETAMINE, URINE NEGATIVE (NEGATIVE); *BARBITURATE, URINE NEGATIVE (NEGATIVE); *CANNABINOID, URINE POSITIVE (NEGATIVE); *COCCAINE, URINE NEGATIVE (NEGATIVE); *OPIATE, URINE NEGATIVE (NEGATIVE); *PHENCYCLIDINE SCREEN,URINE NEGATIVE (NEGATIVE)
[2017-04-26] MEDS ORDERED: LORAZEPAM 1 MG TABLET ONE (21:50)
[2017-04-26] MEDS ORDERED: LORAZEPAM 1 MG TABLET PO ONE (22:00)
--- NOTE | 2017-04-26 22:21 | NUR ---
Ativan 1x dose Ativan 1 mg/tab, 2 tabs given PO as 1x dose. We'll continue to monitor.
[2017-04-26 22:33] LABS: BILIRUBIN,TOTAL 0.4 mg/dL (0.2-1.0); CREATININE 0.9 mg/dL (0.6-1.3); TOTAL PROTEIN, SERUM 7.6 g/dL (6.4-8.2)
[2017-04-26 22:56] LABS: BASOPHILS # (AUTO) 0.2 K/uL (0.0-8.0); BASOPHILS % (AUTO) 3.4 % (0.0-2.0); EOSINOPHILS # (AUTO) 0.2 K/uL (0.0-0.7); EOSINOPHILS % (AUTO) 3.8 % (0.0-7.0); HEMATOCRIT 37.6 % (36.7-47.1); HEMOGLOBIN 13.1 g/dL (12.5-16.3); LYMPHOCYTES # (AUTO) 2.9 K/uL (20.0-40.0); LYMPHOCYTES % (AUTO) 50.9 % (20.5-51.5); MEAN CORPUSCULAR HGB CONC 35 g/dL (32.5-36.3); MEAN CORPUSCULAR VOLUME 89.1 fL (73.0-96.2); MONOCYTES # (AUTO) 0.5 K/uL (2.0-10.0); MONOCYTES % (AUTO) 8.6 % (0.0-11.0); NEUTROPHILS # (AUTO) 1.9 K/uL (1.8-8.9); NEUTROPHILS % (AUTO) 33.3 % (38.5-71.5); PLATELET COUNT (AUTO) 510 K/uL (152-348); RED BLOOD CELL COUNT(AUTO) 4.21 MIL/uL (4.06-5.63); WHITE BLOOD COUNT (AUTO) 5.7 K/uL (3.6-10.2)
--- NOTE | 2017-04-26 23:20 | NUR ---
MRSA Swab Px was here in [facility] last 04/17/2017 to 04/19/2017. MRSA nasal swab done sent to lab. We'll continue to monitor.
--- NOTE | 2017-04-26 23:56 | NUR ---
PRN meds Px complained of heartburns. Maalox 30 ml given PO as PRN. At 0051, Bentyl 20 mg/tab, 1 tab given PRN med. We'll continue to monitor. .
--- NOTE | 2017-04-26 23:56 | NUR ---
K Dur 1x dose Px's K+ level reveals low of 3. K Dur 20 meqs/tab, 2 tabs given PO as 1x dose. We'll continue to monitor.
[2017-04-27] VITALS (8 sets, daily range): BP systolic 104–138; BP diastolic 79–92
[2017-04-27] MEDS ORDERED: POTASSIUM CHLORIDE 20 MEQ TAB.PRT.SR ONE (00:07)
--- NOTE | 2017-04-27 01:52 | NUR ---
PRN Ativan CIWA 11. Ativan 1 mg/tab, 1 tab given PO as PRN med. We'll continue to monitor.
--- NOTE | 2017-04-27 02:20 | NUR ---
PRN Zofran IM Px vomited 1x but verbalized vomited 2x at home. Emesis is blood tinged, showed to charge nurse Mayito. Zofran 4 mg given IM injection on right deltoids. We'll continue to monitor.
--- NOTE | 2017-04-27 02:50 | NUR ---
Reassessment of N/V Px verbalized nausea improved and no episodes of emesis anymore. We'll continue to monitor.
--- NOTE | 2017-04-27 04:00 | NUR ---
CIWA deferred CIWA deferred due to px is asleep, to assess if the px is awake per doctor's order. We'll continue to monitor.
--- NOTE | 2017-04-27 07:06 | NUR ---
End of Shift Notes 56 y/o male admitted on 04/26/17 for ETOH dependence, Px has NKA, regular diet, On Full Code. Px has history of seizures in which the last 1 was 2 weeks ago. PMH: Anxiety, depression, bipolar, seizures, angina (not presently), ulcer, hernia (repaired), fractures, surgeries on cervical area C4-C5 and right metatarsal. At 2221, Ativan 1 mg/tab, 2 tabs given PO as 1x dose. At 2320, MRSA nasal swab done sent to lab. At 2356, Px's K+ level reveals low of 3. K Dur 20 meqs/tab, 2 tabs given PO as 1x dose. Px complained of heartburns. Maalox 30 ml given PO as PRN. At 0051, Bentyl 20 mg/tab, 1 tab given PRN med. At 0152, CIWA 11. Ativan 1 mg/tab, 1 tab given PO as PRN med. At 0220, Px vomited 1x but verbalized vomited 2x at home. Emesis is blood tinged, showed to charge nurse Mayito. Zofran 4 mg given IM injection on right deltoids. Oral intake of 1 L, voided 2 x, vomited 2x. No BM. Slept for 2.5 hours. Respirations even and unlabored. Safety measures in place. Call light within reach, side rails up padded x 2, bed locked and in low position. We'll continue to monitor.
[2017-04-27] MEDS: PANTOPRAZOLE SODIUM 40 MG TABLET.DR PO SCH (07:21)
--- NOTE | 2017-04-27 07:35 | NUR ---
START OF SHIFT Received report from night shift supervisor nurse. Pt is lying in bed resting and easily arousable. He is a 56 yo male admitted to [facility] on 04/26 for ETOH dependence. He is A&O and ambulatory. NKA, full code status, and on a regular diet. PMH of seizure, hernia repair, ulcer, chest pain not presently, fractures of ribs and foot, back surgery, anxiety, depression, and bipolar. On admission pt reported drinking vodka 750mL per day for the past 3 months. Last seizure was 2 weeks ago. 5 day Ativan taper to start today. He reports anxiety with visible sweat on the forehead and tremors. Fall and seizure precautions in place. Bed is down with call light in reach.
[2017-04-27] MEDS ORDERED: TUBERCULIN,PURIF.PROT.DERIV. 5 TU/0.1 ML TEST ID ONE (09:00)
[2017-04-27] MEDS ORDERED: LEVETIRACETAM 500 MG/5 ML LIQUID UDC PO SCH (09:00)
[2017-04-27] MEDS: FOLIC ACID 1 MG TABLET PO SCH (09:19)
[2017-04-27] MEDS: LORAZEPAM 1 MG TABLET PO SCH ×4 (09:19→21:50)
[2017-04-27] MEDS: GABAPENTIN 300 MG CAPSULE PO SCH ×2 (09:20→21:50)
[2017-04-27] MEDS: MULTIVITAMINS,THERAPEUTIC TABLET PO SCH (09:20)
[2017-04-27] MEDS: THIAMINE HCL 100 MG TABLET PO SCH (09:20)
[2017-04-27] MEDS ORDERED: Medication Not On Formulary EA (Buspirone Hcl 15 MG) PO SCH (10:30)
[2017-04-27] MEDS: busPIRone 10 MG TABLET PO SCH ×2 (13:12→16:33)
[2017-04-27] MEDS ORDERED: POTASSIUM CHLORIDE 20 MEQ TAB.PRT.SR PO ONE ×2 (15:00)
[2017-04-27] MEDS: CLONIDINE HCL 0.1 MG TABLET PO PRN (16:38)
--- NOTE | 2017-04-27 16:40 | NUR ---
PRN Clonidine Pt reports feeling anxious with B/P 138/92. PRN Clonidine administered.
--- NOTE | 2017-04-27 17:40 | NUR ---
PRN Clonidine reassessment PRN Clonidine effective. Pt's B/P is 122/82 and HR 88. He reports feeling more relaxed.
[2017-04-27] MEDS ORDERED: TRAZODONE 100 MG TABLET PO SCH ×2 (18:00→21:00)
[2017-04-27] MEDS ORDERED: TRAZODONE PO SCH (18:00)
--- NOTE | 2017-04-27 19:17 | NUR ---
END OF SHIFT Report provided to overnight babysitter nurse. Pt is lying in bed resting. He is a 56 yo male admitted to [facility] on 04/26 for ETOH dependence. He is A&O and ambulatory. NKA, full code status, and on a regular diet. PMH of seizure, hernia repair, ulcer, chest pain not presently, fractures of ribs and foot, back surgery, anxiety, depression, and bipolar. On admission pt reported drinking vodka 750mL per day for the past 3 months. Last seizure was 2 weeks ago. 5 day Ativan taper started today. PRN Clonidine administered and effective. He is compliant with treatment. Last CIWA 7. He drank 2100mL. Fall and seizure precautions in place. Bed is down with call light in reach.
--- NOTE | 2017-04-27 19:45 | NUR ---
Start of Shift Notes 56 y/o male admitted on 04/26/17 for ETOH dependence, Px has NKA, regular diet, On Full Code. Px has history of seizures in which the last 1 was 2 weeks ago. PMH: Anxiety, depression, bipolar, seizures, angina (not presently), ulcer, hernia (repaired), fractures, surgeries on cervical area C4-C5 and right metatarsal. During the rounds at 1945, px reported that his anxiety is so high with mild hand tremors. Respirations even and unlabored. Safety measures in place. Call light within reach, side rails up padded x 2, bed locked and in low position. We'll continue to monitor.
[2017-04-27] MEDS ORDERED: QUETIAPINE FUMARATE 600 MG PO SCH (21:00)
[2017-04-27] MEDS ORDERED: TRAZODONE 100 MG TABLET PO ONE (21:00)
[2017-04-27] MEDS ORDERED: QUETIAPINE FUMARATE 200 MG TABLET PO SCH (21:00)
[2017-04-27] MEDS: LEVETIRACETAM 500 MG TABLET PO SCH (21:50)
[2017-04-28] VITALS: BP 91/58
[2017-04-28 04:00] VITALS: BP 96/67
--- NOTE | 2017-04-28 04:00 | NUR ---
CIWA deferred CIWA deferred at 0000 and 0400 due to the px is asleep, to assess if the px is awake per doctor's order. We'll continue to monitor.
[2017-04-28] MEDS: PANTOPRAZOLE SODIUM 40 MG TABLET.DR PO SCH (06:29)
--- NOTE | 2017-04-28 07:12 | NUR ---
End of Shift Notes 56 y/o male admitted on 04/26/17 for ETOH dependence, Px has NKA, regular diet, On Full Code. Px has history of seizures in which the last 1 was 2 weeks ago. PMH: Anxiety, depression, bipolar, seizures, angina (not presently), ulcer, hernia (repaired), fractures, surgeries on cervical area C4-C5 and right metatarsal. During the shift, px reported that his anxiety is so high with mild hand tremors. Oral intake of 1 L, voided 2x, No BM. Slept for 8 hours. Respirations are even and unlabored. Safety measures in place. Call light within reach, side rails up padded x 2, bed locked and in low position. We'll continue to monitor. Endorsed to AM shift nurse.
--- NOTE | 2017-04-28 07:35 | NUR ---
START OF SHIFT Received report from night shift supervisor nurse. Pt is lying in bed resting and is easily arousable. He is a 56 yo male admitted to [facility] on 04/26 for ETOH dependence. He is A&O and ambulatory. NKA, full code status, and on a regular diet. PMH of seizure, hernia repair, ulcer, chest pain not presently, fractures of ribs and foot, back surgery, anxiety, depression, and bipolar. On admission pt reported drinking vodka 750mL per day for the past 3 months. Last seizure was 2 weeks ago. 5 day Ativan taper started 04/27. Skin is warm and moist. He reports night sweats. Fall and seizure precautions in place. Bed is down with call light in reach.
[2017-04-28 08:00] VITALS: BP 99/73
[2017-04-28] MEDS: LORAZEPAM 1 MG TABLET PO SCH ×3 (08:20→21:27)
[2017-04-28] MEDS: busPIRone 10 MG TABLET PO SCH ×3 (08:21→16:48)
[2017-04-28] MEDS: GABAPENTIN 300 MG CAPSULE PO SCH ×2 (08:22→21:27)
[2017-04-28] MEDS: FOLIC ACID 1 MG TABLET PO SCH (08:22)
[2017-04-28] MEDS: LEVETIRACETAM 500 MG TABLET PO SCH ×2 (08:22→21:26)
[2017-04-28] MEDS: THIAMINE HCL 100 MG TABLET PO SCH (08:22)
[2017-04-28] MEDS: MULTIVITAMINS,THERAPEUTIC TABLET PO SCH (08:22)
[2017-04-28 10:08] LABS: HEPATITIS B SURFACE AG Negative (Negative)
[2017-04-28] MEDS: OXCARBAZEPINE 150 MG TABLET PO SCH ×2 (10:41→16:48)
[2017-04-28 12:00] VITALS: BP 123/85
[2017-04-28 16:30] VITALS: BP 122/80
[2017-04-28] MEDS ORDERED: TRAZODONE 100 MG TABLET PO SCH (18:00)
[2017-04-28] MEDS: TRAZODONE 100 MG TABLET PO SCH (18:46)
--- NOTE | 2017-04-28 19:15 | NUR ---
START OF SHIFT NOTE : Pt . is a 56 yo male admitted to [facility] on 04/26 for ETOH dependence. He was placed on 5 day Ativan taper on 04/27/2017.Pt. is NKA, full code status and on a regular diet. PMH of seizure, hernia repair, ulcer, chest pain not presently, fractures of ribs and foot, back surgery, anxiety, depression, and bipolar. Pt is lying in bed resting and easily arousable , is A&O and ambulatory when alert. No complains at this time. Safety measures in place : bed on lowest position with side rails x2 up for safety, call light within reach. Will continue to monitor closely and offer help.
--- NOTE | 2017-04-28 19:20 | NUR ---
END OF SHIFT Report provided to shoe reconditioner nurse. Pt is in his room watching TV. He is a 56 yo male admitted to [facility] on 04/26 for ETOH dependence. He is A&O and ambulatory. NKA, full code status, and on a regular diet. PMH of seizure, hernia repair, ulcer, chest pain not presently, fractures of ribs and foot, back surgery, anxiety, depression, and bipolar. On admission pt reported drinking vodka 750mL per day for the past 3 months. Last seizure was 2 weeks prior to admission. 5 day Ativan taper started 04/27. Pt experiences periods of anxiety. He is compliant with treatment and attends group meetings. Last CIWA 5. Fall and seizure precautions in place. Bed is down with call light in reach.
[2017-04-28 20:00] VITALS: BP 110/70
[2017-04-28] MEDS: QUETIAPINE FUMARATE 200 MG TABLET PO SCH (21:27)
[2017-04-29] MEDS: PANTOPRAZOLE SODIUM 40 MG TABLET.DR PO SCH (06:20)
--- NOTE | 2017-04-29 06:47 | NUR ---
END OF SHIFT NOTE : Pt . is a 56 yo male admitted to [facility] on 04/26 for ETOH dependence. He was placed on 5 day Ativan taper on 04/27/2017.Pt. is NKA, full code status and on a regular diet. PMH of seizure, hernia repair, ulcer, chest pain not presently, fractures of ribs and foot, back surgery, anxiety, depression, and bipolar Pt remains compliant with the treatment plan. No PRNs were given during my shift. V/S remain WNL. RR=16, even and unlabored, lungs clear upon auscultation, abdomen soft and non- distended. Pt denies nausea, vomiting and diarrhea. CIWA taken when pt. was alert during the night, LAST CIWA=4 at 0400 , INTAKE= 750 ml, voided x1 , slept 10 hours. Safety measures in place : bed on lowest position with side rails x2 up for safety, call light within reach. Will continue to monitor closely and offer help.
--- NOTE | 2017-04-29 07:30 | NUR ---
START OF SHIFT Pt 56 y/o male admitted for etoh dependence. Pt received in room on bed awake watching television. Pt alert and oriented to name, place, and time. Perrla. Skin warm and dry to touch. Respirations even and unlabored. Bilateral hand tremors noted. Pt state feels slightly anxious this morning. It was reported that pt slept for 10 hours last night. Bed on lowest position with side rails x2 up for safety. Call light within reach. No distress noted at this time.
[2017-04-29] MEDS: MULTIVITAMINS,THERAPEUTIC TABLET PO SCH (08:34)
[2017-04-29] MEDS: busPIRone 10 MG TABLET PO SCH ×3 (08:34→16:42)
[2017-04-29] MEDS: LORAZEPAM 1 MG TABLET PO SCH ×3 (08:34→21:10)
[2017-04-29] MEDS: FOLIC ACID 1 MG TABLET PO SCH (08:34)
[2017-04-29] MEDS: GABAPENTIN 300 MG CAPSULE PO SCH ×3 (08:34→21:10)
[2017-04-29] MEDS: OXCARBAZEPINE 150 MG TABLET PO SCH ×2 (08:34→16:42)
[2017-04-29] MEDS: LEVETIRACETAM 500 MG TABLET PO SCH ×2 (08:34→21:10)
[2017-04-29] MEDS: THIAMINE HCL 100 MG TABLET PO SCH (08:35)
[2017-04-29 08:37] VITALS: BP 114/86
[2017-04-29 12:00] VITALS: BP 131/74
--- NOTE | 2017-04-29 12:39 | NUR ---
Therapist prompted client to come to group, client agreed to attend.
[2017-04-29 16:00] VITALS: BP 131/81
--- NOTE | 2017-04-29 17:20 | NUR ---
ONE TIME Pt with ciwa=10. MD aware with new order for ativan 2mg x1 dose, noted and carried out.
[2017-04-29] MEDS ORDERED: LORAZEPAM 1 MG TABLET PO ONE (17:30)
--- NOTE | 2017-04-29 17:33 | NUR ---
TRAZODONE Pt states does not want trazodone at this time and would like to receive it on 2100.
--- NOTE | 2017-04-29 18:20 | NUR ---
ONE TIME EVAL Pt with ciwa=3
--- NOTE | 2017-04-29 18:38 | NUR ---
END OF SHIFT Pt 56 y/o male admitted for etoh. Pt alert and oriented to name, place. Perrla. Skin warm and slightly moist to touch. Respirations even and unlabored. Bilateral hand tremors noted. Pt with periods of anxiety this morning. Pt mostly in room today, but did attend group activity. Pt was seen by MD today. Pt medication compliant and tolerated well. No ASE noted. Bed on lowest position with side rails x2 up for safety. Call light within reach. No distress noted at this time.
--- NOTE | 2017-04-29 19:15 | NUR ---
START OF SHIFT Received 56 year old male patient admitted on 04/26/17 for ETOH dependency. Pt is full code with NKA. He reports a PMHx of seizure, anxiety, depression, bipolar, chest pain ( not present), hernia, and surgery to C4and C% disc. He reports using ETOH (vodka) 750 mL daily for 3 months. Last dose was 300 mL on 04/26/17. He is currently receiving a 5 day Ativan taper and tolerating well. Per endorsement, pt did not receive or request PRN medications. Pt is alert and oriented x4, breathing is even and unlabored. Safety measures in place. Will continue to monitor.
[2017-04-29 20:00] VITALS: BP 132/87
[2017-04-29] MEDS: TRAZODONE 100 MG TABLET PO SCH (21:09)
[2017-04-29] MEDS: QUETIAPINE FUMARATE 200 MG TABLET PO SCH (21:42)
--- NOTE | 2017-04-30 | NUR ---
VITALS REFUSED, CIWA DEFERRED 0000 vitals refused. CIWA deferred d/t pt lying in bed with eyes closed noted to be asleep. Breathing is even and unlabored. Safety measures in place. Will monitor.
--- NOTE | 2017-04-30 04:00 | NUR ---
VITALS REFUSED, CIWA DEFERRED 0400 vitals refused. CIWA deferred d/t pt lying in bed with eyes closed noted to be asleep. Breathing is even and unlabored. Safety measures in place. Will monitor.
[2017-04-30] MEDS: PANTOPRAZOLE SODIUM 40 MG TABLET.DR PO SCH (06:46)
--- NOTE | 2017-04-30 07:08 | NUR ---
END OF SHIFT Pt is a 56 year old male patient admitted on 04/26/17 for ETOH dependency. Pt is full code with NKA. He reports a PMHx of seizure, anxiety, depression, bipolar, chest pain ( not present), hernia, and surgery to C4and C5 disc. He is continues on a 5 day Ativan taper and tolerating well. He did not receive or request PRN medications. He slept a total of 8 hrs, Intake:2138mL, Void:x3, BM:x1, CIWA:6. Pt remains alert and oriented x4, breathing is even and unlabroed. Safety measures in place. Endorsed to AM shift.
--- NOTE | 2017-04-30 07:30 | NUR ---
START OF SHIFT Pt 56 y/o male admitted for etoh dependence. Pt received awake walking around the hallways. Pt alert and oriented to name, place, and time. Perrla. Skin warm and dry to touch. Respirations even and unlabored. Bilateral hand tremors noted. It was reported that pt slept for 8 hours last night. Bed on lowest position with side rails x2 up for safety. Call light within reach. No distress noted at this time.
[2017-04-30 08:00] VITALS: BP 117/85
[2017-04-30] MEDS: OXCARBAZEPINE 300 MG TABLET PO SCH ×2 (08:57→16:40)
[2017-04-30] MEDS: MULTIVITAMINS,THERAPEUTIC TABLET PO SCH (08:57)
[2017-04-30] MEDS: busPIRone 10 MG TABLET PO SCH ×3 (08:57→16:40)
[2017-04-30] MEDS: GABAPENTIN 300 MG CAPSULE PO SCH ×3 (08:57→20:34)
[2017-04-30] MEDS: THIAMINE HCL 100 MG TABLET PO SCH (08:57)
[2017-04-30] MEDS: LORAZEPAM 1 MG TABLET PO SCH ×3 (08:58→20:34)
[2017-04-30] MEDS: LEVETIRACETAM 500 MG TABLET PO SCH ×2 (08:58→20:34)
[2017-04-30] MEDS: FOLIC ACID 1 MG TABLET PO SCH (08:58)
[2017-04-30] MEDS ORDERED: LORAZEPAM 1 MG TABLET PO SCH (09:00)
[2017-04-30] MEDS ORDERED: OXCARBAZEPINE 150 MG TABLET PO SCH (09:00)
--- NOTE | 2017-04-30 12:22 | NUR ---
Therapist prompted client to attend group. client agreed to come to group.
[2017-04-30 12:31] VITALS: BP 142/63
[2017-04-30] MEDS: CLONIDINE HCL 0.1 MG TABLET PO PRN (12:45)
--- NOTE | 2017-04-30 12:47 | NUR ---
PRN Pt with aq=533/96. Catapres po prn per MD order given and tolerated well.
--- NOTE | 2017-04-30 13:47 | NUR ---
PRN EVAL Pt with fu=808/68
[2017-04-30 16:00] VITALS: BP 111/79
--- NOTE | 2017-04-30 17:56 | NUR ---
TRAZODONE Pt states does not want trazodone at this time and would like to receive it on 2100.
--- NOTE | 2017-04-30 18:35 | NUR ---
END OF SHIFT Pt 56 y/o male admitted for etoh. Pt alert and oriented to name, place. Perrla. Skin warm and slightly moist to touch. Respirations even and unlabored. Bilateral hand tremors noted. Pt with some periods of anxiety this morning. Pt mostly in room today, but did attend group activity. Pt was seen by MD today. Pt medication compliant and tolerated well. No ASE noted. Bed on lowest position with side rails x2 up for safety. Call light within reach. No distress noted at this time.
--- NOTE | 2017-04-30 19:15 | NUR ---
START OF SHIFT Received 56 year old male patient admitted on 04/26/17 for ETOH dependency. Pt is full code with NKA. He reports a PMHx of seizure, anxiety, depression, bipolar, chest pain ( not present), hernia, and surgery to C4and C5 disc. He reports using ETOH (vodka) 750 mL daily for 3 months. Last dose was 300 mL on 04/26/17. He is currently receiving a 5 day Ativan taper and tolerating well. Per endorsement, pt received PRN Clonidine. Pt is alert and oriented x3, breathing is even and unlabored. Safety measures in place. Will continue to monitor.
[2017-04-30 20:00] VITALS: BP 132/86
[2017-04-30] MEDS: TRAZODONE 100 MG TABLET PO SCH (20:33)
[2017-04-30] MEDS: QUETIAPINE FUMARATE 200 MG TABLET PO SCH (21:16)
[2017-05-01] MEDS: IBUPROFEN 400 MG TABLET PO PRN (03:49)
--- NOTE | 2017-05-01 03:49 | NUR ---
PRN MOTRIN Pt reports headache 11/22. PRN Motrin administered as ordered. Will monitor effectiveness.
[2017-05-01 04:01] VITALS: BP 128/86
--- NOTE | 2017-05-01 04:49 | NUR ---
PRN MOTRIN REASSESSMENT PRN medication effective. Pt reports headache decreased to 4/10.
[2017-05-01] MEDS: PANTOPRAZOLE SODIUM 40 MG TABLET.DR PO SCH (06:46)
--- NOTE | 2017-05-01 06:46 | NUR ---
PRN ZOFRAN Pt complains of nausea with no episode of vomiting. PRN Zofran administered as ordered. Will endorse to monitor effectiveness.
--- NOTE | 2017-05-01 07:16 | NUR ---
END OF SHIFT Pt is a 56 year old male patient admitted on 04/26/17 for ETOH dependency. Pt is full code with NKA. He reports a PMHx of seizure, anxiety, depression, bipolar, chest pain ( not present), hernia, and surgery to C4and C5 disc. He received PRN Motrin. He continues on a 5 day Ativan taper and tolerating well. He slept a total of 7 hrs, Intake:552mL, Void: x3, BM:0, CIWA:5. Pt remains alert and oriented x3, breathing is even and unlabored. Safety measures in place. Will endorse to AM shift.
--- NOTE | 2017-05-01 07:40 | NUR ---
BEGINNING OF SHIFT Patient endorsement report received from mold shifter nurse, all pertinent information discussed. Patient is a 56 year old male, with admitting Dx: ETOH dependence. Patient currently Under close observation, currently with with ongoing 5 day Ativan taper as ordered, well tolerated, no ASE noted, patient received Prn: Motrin, Zofran, medication effective, one hour post administration. Patient with last ciwa score of: 5; patient slept for 7 hours. Patient received awake, alert and oriented x4, educated regarding plan of care for the day and medication regimen. safety measures in place. fall and seizure precautions observed. will continue to monitor closely.
[2017-05-01 08:27] VITALS: BP 116/82
[2017-05-01] MEDS: THIAMINE HCL 100 MG TABLET PO SCH (08:28)
[2017-05-01] MEDS: LEVETIRACETAM 500 MG TABLET PO SCH ×2 (08:28→20:48)
[2017-05-01] MEDS: GABAPENTIN 300 MG CAPSULE PO SCH ×3 (08:29→20:47)
[2017-05-01] MEDS: FOLIC ACID 1 MG TABLET PO SCH (08:29)
[2017-05-01] MEDS: MULTIVITAMINS,THERAPEUTIC TABLET PO SCH (08:29)
[2017-05-01] MEDS: OXCARBAZEPINE 300 MG TABLET PO SCH ×2 (08:29→16:49)
[2017-05-01] MEDS: busPIRone 10 MG TABLET PO SCH ×3 (08:30→16:49)
[2017-05-01] MEDS ORDERED: LORAZEPAM 1 MG TABLET PO SCH (09:00)
[2017-05-01 12:38] VITALS: BP 138/89
[2017-05-01 16:36] VITALS: BP 136/84
[2017-05-01] MEDS: GUAIFENESIN/DEXTROMETHORPHAN 5 ML UDC PO PRN (16:51)
--- NOTE | 2017-05-01 16:51 | NUR ---
PRN GUAIFENESIN/DEXTRORPHAN Patient c/o cough, respiration are even and unlabored. no SOB, lungs clear upon auscultation. afebrile. will monitor effectiveness of medication.
[2017-05-01] MEDS: TRAZODONE 100 MG TABLET PO SCH (17:08)
--- NOTE | 2017-05-01 17:51 | NUR ---
GUAIFENESIN/DEXTRORPHAN REASSESSMENT Patient reports medication effective, reports coughing less. will continue to monitor.
[2017-05-01] MEDS ORDERED: LEVE500T9 PO (17:57)
[2017-05-01] MEDS ORDERED: OXCA300T4 PO (17:57)
[2017-05-01] MEDS ORDERED: QUET200T PO (17:57)
[2017-05-01] MEDS ORDERED: BUSP10TA3 PO (17:57)
[2017-05-01] MEDS ORDERED: PANT40TA2 PO (17:57)
[2017-05-01] MEDS ORDERED: GABA-534 PO (17:57)
[2017-05-01] MEDS ORDERED: ONDA4TAB11 SL (17:57)
[2017-05-01] MEDS ORDERED: TRAZ-147 PO (17:57)
[2017-05-01] MEDS ORDERED: DICY20TA28 PO (17:57)
[2017-05-01] MEDS ORDERED: CLON0.1T14 PO (17:57)
--- NOTE | 2017-05-01 18:59 | NUR ---
BEGINNING OF SHIFT Patient alert and oriented x4, vital signs with in normal limits during shift. Patient compliant with therapeutic plan of care. Patient with admitting Dx: etoh dependence. Continues under close observation, cow score and vital signs were monitored closely during shift. Patient received last dose of Ativan this morning, well tolerated, no ASE noted. Patient is scheduled to be discharged tomorrow, noted self motivated towards sobriety. During shift patient presented with 0900: fine tremors, anxiety, and mild agitaion with ciwa score of: 6; 1300 assessment patient presented with: tremors that can be felt but not seen and mild anxiety with ciwa score of: 2; 1700tremors that can be felt but not seen and mild anxiety with ciwa score of: 2. during shift patient received PRN: Guaifensin/dextromethorphan as ordered for cough, medication effective. Patient encouraged adequate PO fluid intake as tolerated. Encouraged patient to attend group therapies/sessions to learn new coping skills to prevent Relapse,noted attending and participating. Patient denies any SI/HI. Safety measures in place. Call light kept with in reach, patient endorsed to restaurant shift leader nurse, all pertinent information discussed.
--- NOTE | 2017-05-01 19:30 | NUR ---
START OF SHIFT Patient is a 56 y/o male admitted for ETOH dependency.Pt is A/O x 4.Continues under close observation.Per report,Pt has completed his Ativan taper and is scheduled to be discharged tomorrow.Pt is med compliant,no A/R noted,has a HX of seizure disorder.On fall and seizure precautions.All safety measures in place. Call light with in reach, will continue to monitor for safety.
[2017-05-01 20:00] VITALS: BP 137/85
[2017-05-01] MEDS: QUETIAPINE FUMARATE 200 MG TABLET PO SCH (20:47)
--- NOTE | 2017-05-01 20:50 | NUR ---
PRN TRAZODONE GIVEN ORDERED FOR C/O INSOMNIA.WILL MONITOR.
[2017-05-01] MEDS ORDERED: TRAZODONE 100 MG TABLET ONE (20:53)
[2017-05-01] MEDS ORDERED: TRAZODONE 100 MG TABLET PO SCH (21:00)
--- NOTE | 2017-05-01 21:50 | NUR ---
PRN F/U PT IS IN DEEP SLEEP,BREATHING IS EVEN AND NON LABORED,NO S/S OF DISTRESS NOTED.WILL CONTINUE TO MONITOR.
--- NOTE | 2017-05-02 | NUR ---
V/S refused/CIWA deferred d/t pt sleeping. Breathing is even and non labored,no s/s of distress noted.All safety measures in place, will continue to monitor.
--- NOTE | 2017-05-02 04:00 | NUR ---
V/S refused/CIWA deferred d/t pt sleeping. Breathing is even and non labored,no s/s of distress noted.All safety measures in place, will continue to monitor.
[2017-05-02] MEDS: CLONIDINE HCL 0.1 MG TABLET PO PRN (04:42)
--- NOTE | 2017-05-02 04:50 | NUR ---
PRN MEDS PT C/O FEELING SHAKY AND ANXIOUS.B/P=138/90,JC=355,TEMP=99.9.PRN CLONIDINE AND TYLENOL GIVEN ORDERED.WILL CONTINUE TO MONITOR.
[2017-05-02] MEDS: GUAIFENESIN/DEXTROMETHORPHAN 5 ML UDC PO PRN (05:11)
--- NOTE | 2017-05-02 05:15 | NUR ---
PRN ROBITUSSIN GIVEN FOR C/O COUGH.WILL MONITOR.
--- NOTE | 2017-05-02 05:50 | NUR ---
PRN F/U PT STATES "FEELING BETTER".PT IS LESS ANXIOUS,NO SHAKES NOTED,B/P=117/87,HR=92,TEMP=98.2.WILL CONTINUE TO MONITOR.
[2017-05-02] MEDS: PANTOPRAZOLE SODIUM 40 MG TABLET.DR PO SCH (06:16)
--- NOTE | 2017-05-02 06:45 | NUR ---
END OF SHIFT Patient is a 56 y/o male admitted for ETOH dependency.Pt is A/O x 4.Continues under close observation.Pt has completed his Ativan taper and is scheduled to be discharged today.Pt encouraged to take medications as prescribed and maintain sobriety.Pt is med compliant,no A/R noted,has a HX of seizure disorder.On fall and seizure precautions.PRN meds Trazodone,Clonidine,Tylenol and Robitussin were given and were effective.Pt slept 7 hrs;fluid intake was 855 mls;voided x 2.Pt is in a stable condition at this time.All safety measures in place. Call light with in reach, will continue to monitor for safety. Addendum: 05/02/17 at 0654 by SARAH LAURA RN LAST CIWA=2.
--- NOTE | 2017-05-02 07:35 | NUR ---
START OF SHIFT Received report from squad sergeant nurse. Pt is resting in bed watching TV. He is a 56 yo male admitted to [facility] on 04/26 for ETOH dependence. He is A&O and ambulatory. NKA, full code status, and on a regular diet. PMH of seizure, chest pain not presently, ulcer, hernia repair, fractures of ribs and foot, back surgery, anxiety, depression, and bipolar. On admission he reported drinking vodka 750mL per day. 5 Day Ativan taper completed and he is scheduled for discharge today. Pt reports mild anxiety regarding discharge. Provided support and encouragement. Fall and seizure precautions in place. Bed is down with call light in reach.
[2017-05-02 08:00] VITALS: BP 130/74
[2017-05-02] MEDS: FOLIC ACID 1 MG TABLET PO SCH (08:17)
[2017-05-02] MEDS: busPIRone 10 MG TABLET PO SCH (08:17)
[2017-05-02] MEDS: THIAMINE HCL 100 MG TABLET PO SCH (08:18)
[2017-05-02] MEDS: LEVETIRACETAM 500 MG TABLET PO SCH (08:18)
[2017-05-02] MEDS: MULTIVITAMINS,THERAPEUTIC TABLET PO SCH (08:18)
[2017-05-02] MEDS: OXCARBAZEPINE 300 MG TABLET PO SCH (08:18)
[2017-05-02] MEDS ORDERED: GABAPENTIN 300 MG CAPSULE PO SCH (09:00)
[2017-05-02] MEDS: IBUPROFEN 400 MG TABLET PO PRN (11:33)
--- NOTE | 2017-05-02 11:35 | NUR ---
PRN Motrin Pt reports headache. PRN Motrin administered.
--- NOTE | 2017-05-02 11:54 | NUR ---
DISCHARGE NOTE Pt is in stable condition. Vitals stable, pt alert and oriented x4, skin intact. He denies any SI/HI. All discharge paperwork completed, dated, and signed. Pt educated about discharge instructions, what to do after discharge, and when to contact MD as well as the s/s reportable to MD. Pt verbalized understanding. Last CIWA 2. Pt was discharged from [facility] on 05/02/17 at 1153. He left the building with all of his belongings, medications, and prescriptions. MD has been contacted and aware of pt's discharge.
[2017-05-02] MEDS ORDERED: TRAZODONE 100 MG TABLET PO SCH (21:00)
== END 2017-05-02 12:00 | disposition other institution (70) | DRG 895 ==
LOC: SRC 19:48
PROVIDERS: ADMIT Internal Medicine; ATTEND Internal Medicine
PROC: HZ2ZZZZ Detoxification Services for Substance Abuse Treatment (ICD-10-PCS; principal; 2017-04-26)
PROC: HZ41ZZZ Group Counseling for Substance Abuse Treatment, Behavioral (ICD-10-PCS; 2017-04-27)
PROC: HZ31ZZZ Individual Counseling for Substance Abuse Treatment, Behavioral (ICD-10-PCS; 2017-04-29)
DX: F10.230 Alcohol dependence with withdrawal, uncomplicated (principal); G40.919 Epilepsy, unspecified, intractable, without status epilepticus; K22.6 Gastro-esophageal laceration-hemorrhage syndrome; E87.2 Acidosis; F12.90 Cannabis use, unspecified, uncomplicated; F13.10 Sedative, hypnotic or anxiolytic abuse, uncomplicated; F17.210 Nicotine dependence, cigarettes, uncomplicated; F31.9 Bipolar disorder, unspecified; E87.6 Hypokalemia; Y90.6 Blood alcohol level of 120-199 mg/100 ml; F43.10 Post-traumatic stress disorder, unspecified; Z91.89 Other specified personal risk factors, not elsewhere classified; G47.00 Insomnia, unspecified; Z79.899 Other long term (current) drug therapy; Z87.19 Personal history of other diseases of the digestive system; I10 Essential (primary) hypertension; Z81.1 Family history of alcohol abuse and dependence
CPT/HCPCS: 36415; 70030-TC; 80307; 80346; 80349; 83735; 85025; 86580; 86592; 86705; 86803; 87340; 87806; G0480; J2405; J3411; Q0162